=== PATIENT | male | born 1965 | race Caucasian/White ===

== ENCOUNTER 2016-09-12 23:56 | Emergency (ER) | payer SELFPAY | END 2016-09-13 01:32 | disposition left against medical advice (07) | LOC: ER 23:56 | DX: Z53.21 Procedure and treatment not carried out due to patient leaving prior to being seen by health care provider (principal) ==

== ENCOUNTER 2016-09-13 06:56 | Emergency (ER) | payer MEDICAID ==
[2016-09-13 07:16] VITALS: BP 123/97
[2016-09-13] MEDS ORDERED: HYDROCODONE/ACETAMINOPHEN 5-325 MG TABLET PO ONE (07:27)
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
[2016-09-13] MEDS ORDERED: OXYCODONE-ACETAMINOPHEN 5-325 MG TABLET PO ONE (09:06)
== END 2016-09-13 09:11 | disposition home or self-care (01) ==
LOC: ER 06:56
DX: S69.91XA Unspecified injury of right wrist, hand and finger(s), initial encounter (principal); M79.89 Other specified soft tissue disorders; W19.XXXA Unspecified fall, initial encounter; F17.200 Nicotine dependence, unspecified, uncomplicated; Z88.5 Allergy status to narcotic agent
CPT/HCPCS: 99283

== ENCOUNTER 2017-10-11 16:26 | Emergency (ER) | payer MEDICAID ==
[2017-10-11] MEDS ORDERED: HYDROMORPHONE HCL INJ/PF 2 MG/ML AMPULE IV ONE ×2 (17:25→21:13)
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
[2017-10-11] MEDS ORDERED: DIAZEPAM 2 MG TABLET PO ONE (18:36)
--- NOTE | 2017-10-11 20:03 | RADIOLOGY REPORT (SQ) ---
EXAM DESCRIPTION: MRI CERVICAL SPINE WITHOUT COMPLETED DATE/TIME: 10/11/2017 7:29 pm REASON FOR STUDY: pain/fall COMPARISON: None. TECHNIQUE: Sagittal and Axial imaging includes T1, T2, STIR and gradient echo sequences. LIMITATIONS: None. FINDINGS: ALIGNMENT: Normal. VERTEBRAE: Intact. Congenital fusion of C6-C7. BONE MARROW: Mild multilevel degenerative changes. DISCS: Multilevel degenerative changes. HARDWARE: None in the spine. CORD AND BASE OF BRAIN: Normal in size and signal intensity. SOFT TISSUES: No soft tissue masses. C1-C2: No significant spinal stenosis. C2-C3: No significant spinal stenosis or exit foraminal stenosis. C3-C4: High-grade right-sided exit foraminal stenosis due to 7 mm disc protrusion. Mild left exit for aminal stenosis. C4-C5: Mild -moderate central canal narrowing due to posterior spondylotic ridging. Mild -moderate b ilateral exit foraminal stenosis. C5-C6: Mild -moderate central canal narrowing due to posterior spondylotic ridging. Mild -moderate bilateral exit foraminal stenosis.. C6-C7: Congenital fusion. No significant spinal stenosis or exit foraminal stenosis. C7-T1: No significant spinal stenosis or exit foraminal stenosis. UPPER THORACIC: Incompletely imaged. No significant spinal stenosis or exit foraminal stenosis. OTHER: No other significant finding. 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 No ev idence for fracture. Mild -moderate central canal narrowing due to posterior spondylotic ridging at the C4-5 and C5-6 levels with Mild -moderate bilateral exit foraminal stenosis. TECHNICAL DOCUMENTATION: JOB ID: [id number] [place]-72 2010 [employer]- All Rights Reserved
[2017-10-11] MEDS ORDERED: DEXAMETHASONE SOD PHOS INJ 10 MG/1 ML VIAL IV ONE (21:55)
[2017-10-11] MEDS ORDERED: KETOROLAC TROMETHAMINE INJ/PF 30 MG/1 ML SDV IV ONE (21:55)
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
[2017-10-11 22:32] VITALS: BP 152/91
== END 2017-10-11 22:32 | disposition home or self-care (01) ==
LOC: ER 16:26
DX: S13.141A Dislocation of C3/C4 cervical vertebrae, initial encounter (principal); Y04.0XXA Assault by unarmed brawl or fight, initial encounter; M54.2 Cervicalgia; R20.0 Anesthesia of skin; R20.2 Paresthesia of skin; M79.601 Pain in right arm; M79.602 Pain in left arm; M25.512 Pain in left shoulder; F17.210 Nicotine dependence, cigarettes, uncomplicated; Z98.1 Arthrodesis status; Z71.6 Tobacco abuse counseling; Z88.5 Allergy status to narcotic agent
CPT/HCPCS: 96376; 99406; 99284; 96374; 96375; 72141; L0120; J3490; J1885; J1170; J1100

== ENCOUNTER 2017-10-13 16:12 | Emergency (ER) | payer MEDICAID ==
--- NOTE | 2017-10-13 17:17 | ER Document Report ---
ED General - General Chief Complaint: Neck Pain >24hrs old Stated Complaint: NECK INJURY Time Seen by Provider: 10/13/17 17:01 Mode of Arrival: Ambulatory Information source: Patient Notes: 52-year-old male with chronic neck pain who had an injury 2 days ago an MRI performed which noted a 7 mm protrusion presents with complaints of wanting pain medication. Patient notes he has run out of the pain meds are prescribed to him, that he has follow-up with neurosurgery but not until 1 month from now, patient notes he was given 6 pain meds and wants more Patient denies any neurological weakness numbness that is acute, he does have chronic right-sided deficits TRAVEL OUTSIDE OF THE [place] IN LAST 30 DAYS: No - HPI Onset: Other Onset/Duration: Persistent Quality of pain: Achy Severity: Mild Pain Level: 1 Associated symptoms: Body/muscle aches Exacerbated by: Movement Relieved by: Denies Similar symptoms previously: Yes Recently seen / treated by doctor: Yes - Related Data Allergies/Adverse Reactions: hydrocodone Allergy (Verified 10/13/17 16:16) Past Medical History - Social History Smoking Status: Current Every Day Smoker Cigarette use (# per day): Yes Chew tobacco use (# tins/day): No Smoking Education Provided: No Frequency of alcohol use: Occasional Drug Abuse: None Family History: CAD, DM, Hyperlipidemia, Hypertension Patient has suicidal ideation: No Patient has homicidal ideation: No Renal/ Medical History: Denies: Hx Peritoneal Dialysis Musculoskeltal Medical History: Reports Hx Arthritis, Reports Hx Musculoskeletal Deformity, Reports Hx Musculoskeletal Trauma Past Surgical History: Reports: Hx Orthopedic Surgery - cervical spine x6 - Immunizations Immunizations up to date: No Hx Diphtheria, Pertussis, Tetanus Vaccination: No Review of Systems - Review of Systems Notes: REVIEW OF SYSTEMS: CONSTITUTIONAL : Denies fever, chills, or sweats. Denies recent illness. EENT: Admits to neck pain CARDIOVASCULAR: Denies chest pain. Denies palpitations or racing or irregular heart beat. Denies ankle edema. RESPIRATORY: Denies cough, cold, or chest congestion. Denies shortness of breath, difficulty breathing, or wheezing. GASTROINTESTINAL: Denies abdominal pain or distention. Denies nausea, vomiting , or diarrhea. Denies blood in vomitus, stools, or per rectum. Denies black, tarry stools. Denies constipation. GENITOURINARY: Denies difficulty urinating, painful urination, burning, frequency, blood in urine, or discharge. MUSCULOSKELETAL: Denies any back pain SKIN: Denies rash, lesions or sores. HEMATOLOGIC : Denies easy bruising or bleeding. LYMPHATIC: Denies swollen, enlarged glands. NEUROLOGICAL: Admits to baseline right-sided weakness PSYCHIATRIC: Denies anxiety or stress. Denies depression, suicidal ideation, or homicidal ideation. ALL OTHER SYSTEMS REVIEWED AND NEGATIVE. Dictation was performed using [employer] voice recognition software PHYSICAL EXAMINATION: GENERAL: Well-appearing, well-nourished and in no acute distress. HEAD: Atraumatic, normocephalic. EYES: Pupils equal round and reactive to light, extraocular movements intact, sclera anicteric, conjunctiva are normal. ENT: Nares patent, oropharynx clear without exudates. Moist mucous membranes. NECK: C-collar in place LUNGS: Breath sounds clear to auscultation bilaterally and equal. No wheezes rales or rhonchi. HEART: Regular rate and rhythm without murmurs ABDOMEN: Soft, nontender, nondistended abdomen. No guarding, no rebound. No masses appreciated. Musculoskeletal: Normal range of motion, no pitting or edema. No cyanosis. NEUROLOGICAL: Cranial nerves grossly intact. Normal speech, normal gait. Normal sensory, motor exams a sign 4 out of 5 strength upper extremities PSYCH: Normal mood, normal affect. SKIN: Postsurgical changes right upper extremity Physical Exam - Vital signs Vitals: Temp Pulse Resp BP Pulse Ox 98.4 F 68 12 150/101 H 98 10/13/17 16:19 10/13/17 16:19 10/13/17 16:19 10/13/17 16:19 10/13/17 16:19 Course - Re-evaluation Re-evalutation: 10/13/17 19:35 MRI report and previous presentations have been reviewed, patient will be given pain control at his request, I have stressed the importance of follow-up with primary care as well as neurosurgery but given his actual injury I do believe further pain control at this time is appropriate patient is happy with this plan does not want any imaging does not want anything done except for the pain control After performing a Medical Screening Examination, I estimate there is LOW risk for CENTRAL CORD SYNDROME, LUDWIGS ANGINA, PERITONSILLAR ABSCESS, RETROPHARYNGEAL ABSCESS, EPIDURAL MASS LESION, SEVERE SPINAL STENOSIS, ARTERIAL DISSECTION, MENINGITIS, or ACUTE CORONARY SYNDROME, thus I consider the discharge disposition reasonable. I have reevaluated this patient multiple times and no significant life threatening changes are noted. The patient and I have discussed the diagnosis and risks, and we agree with discharging home to follow-up on an outpatient basis with the understanding that symptoms and presentations can change. We also discussed returning to the Emergency Department immediately if new or worsening symptoms occur. We have discussed the symptoms which are most concerning (e.g., saddle anesthesia, urinary or bowel incontinence or retention, changing or worsening pain) that necessitate immediate return. - Vital Signs Vital signs: Temp Pulse Resp BP Pulse Ox 97.8 F 76 12 135/98 H 98 10/13/17 17:50 10/13/17 17:50 10/13/17 16:19 10/13/17 17:50 10/13/17 17:50 - Diagnostic Test Radiology reviewed: Image reviewed Discharge - Discharge Clinical Impression: Protrusion of cervical intervertebral disc, Medication refill Fall Qualifiers: Encounter type: initial encounter Qualified Code(s): W19.XXXA - Unspecified fall, initial encounter Condition: Stable Disposition: HOME, SELF-CARE Instructions: Neck Injury (Cervical Strain) ([facility]) Additional Instructions: You must follow-up with your surgeon and primary care for further pain control, otherwise years stable for discharge at this time no neurological deficits are noted Prescriptions: Methocarbamol [Robaxin 500 mg Tablet] 500 mg PO BID #20 tablet Oxycodone HCl/Acetaminophen [Percocet 5-325 mg Tablet] 1 - 2 tab PO Q4H PRN #20 tablet PRN Reason:
[2017-10-13] MEDS ORDERED: OXYCODONE-ACETAMINOPHEN 5-325 MG TABLET PO ONE (17:48)
[2017-10-13 17:59] VITALS: BP 135/98
== END 2017-10-13 17:59 | disposition home or self-care (01) ==
LOC: ER 16:12
DX: Z76.0 Encounter for issue of repeat prescription (principal); M50.23 Other cervical disc displacement, cervicothoracic region; W19.XXXA Unspecified fall, initial encounter
CPT/HCPCS: 99283

== ENCOUNTER 2017-10-18 11:12 | Emergency (ER) | payer MEDICAID, OTHER ==
[2017-10-18 11:19] VITALS: BP 130/87
--- NOTE | 2017-10-18 11:51 | ER Document Report ---
ED Neck/Back Problem - General Chief Complaint: Neck Pain >24hrs old Stated Complaint: NECK PAIN Time Seen by Provider: 10/18/17 11:46 Mode of Arrival: Ambulatory Information source: Patient Notes: 52 years old male who was seen here in the hospital a few times 1 time last time he was seen here for pain medication prior to that was seen here for neck pain and had a CT of the neck which was reported by radiologist as no fracture. Today he presents saying that his pain medication as an out and he needs pain medications. Claimed that he has an appointment with pain clinic 8 days from today. Otherwise no symptom change. Persistent neck pain. TRAVEL OUTSIDE OF THE [place] IN LAST 30 DAYS: No - Related Data Allergies/Adverse Reactions: hydrocodone Allergy (Verified 10/13/17 16:16) Past Medical History - General Information source: Patient - Social History Smoking Status: Current Every Day Smoker Chew tobacco use (# tins/day): No Frequency of alcohol use: None Drug Abuse: None Family History: CAD, DM, Hyperlipidemia, Hypertension Patient has suicidal ideation: No Patient has homicidal ideation: No - Medical History Notes: Chronic pain syndrome - Past Medical History Cardiac Medical History: Denies: None, Hx Atrial Fibrillation, Hx Congestive Heart Failure, Hx Coronary Artery Disease, Hx DVT, Hx Heart Attack, Hx Hypercholesterolemia, Hx Hypertension, Hx Peripheral Vascular Disease, Hx Pulmonary Embolism, Hx Heart Murmur, Other Renal/ Medical History: Denies: Hx Peritoneal Dialysis Musculoskeltal Medical History: Reports Hx Arthritis, Reports Hx Musculoskeletal Deformity, Reports Hx Musculoskeletal Trauma Past Surgical History: Reports: Hx Orthopedic Surgery - cervical spine x6 - Immunizations Immunizations up to date: No Hx Diphtheria, Pertussis, Tetanus Vaccination: No Review of Systems - Review of Systems Constitutional: denies: No symptoms reported, See HPI, Chills, Diaphoresis, Fever, Malaise, Weakness, Other, Weight gain, Weight loss, Recent illness EENT: denies: No symptoms reported, See HPI, Eye pain, Eye discharge, Blurred vision, Tearing, Double vision, Ear pain, Ear discharge, Nose pain, Nose congestion, Nose discharge, Sinus pressure, Sinus discharge, Throat pain, Difficulty swallowing, Throat swelling, Mouth pain, Mouth swelling, Dental problem, Vertigo, Other Cardiovascular: denies: No symptoms reported, See HPI, Chest pain, Palpitations , Heart racing, Orthopnea, Dyspnea, Syncope, Dizziness, Lightheaded, Edema, Other, Paroxysmal Nocturnal Dysp Respiratory: denies: No symptoms reported, See HPI, Cough, Hurts to breathe, Hemoptysis, Short of breath, Sputum, Stridor, Wheezing, Other Gastrointestinal: denies: No symptoms reported, See HPI, Abdomen distended, Abdominal pain, Diarrhea, Nausea, Vomiting, Constipation, Blood streaked bowels , Poor appetite, Poor fluid intake, Blood in vomit, Black stools, Rectal bleeding, Last bowel movement, Fecal incontinence, Other Genitourinary: denies: No symptoms reported, See HPI, Burning, Dysuria, Discharge, Frequency, Flank pain, Hematuria, Incontinence, Pain, Urgency, Retention, Other Neurological/Psychological: denies: No symptoms reported, See HPI, Confusion, Dementia, Depression, Hallucinations, Anxiety, Homicidal ideation, Sensory change, Weakness, Gait changes, Loss of power, Paralysis, Seizure, Lost consciousness, Headaches, Speech impairment, Numbness, Suicidal ideation, Tingling, Tremor, Other Physical Exam - Vital signs Vitals: Temp Pulse Resp BP Pulse Ox 97.5 F 70 16 130/87 H 98 10/18/17 11:17 10/18/17 11:17 10/18/17 11:17 10/18/17 11:17 10/18/17 11:17 - Notes Notes: PHYSICAL EXAMINATION: GENERAL: Well-appearing, well-nourished and in no acute distress. Not seems to be in any acute distress. HEAD: Atraumatic, normocephalic. EYES: Pupils equal round and reactive to light, extraocular movements intact, sclera anicteric, conjunctiva are normal. ENT: Nares patent, oropharynx clear without exudates. Moist mucous membranes. NECK: On neck collar, questionable tenderness over the paraspinal muscles, supple without lymphadenopathy LUNGS: Breath sounds clear to auscultation bilaterally and equal. No wheezes rales or rhonchi. HEART: Regular rate and rhythm without murmurs ABDOMEN: Soft, nontender, nondistended abdomen. No guarding, no rebound. No masses appreciated. Musculoskeletal: Normal range of motion, no pitting or edema. No cyanosis. NEUROLOGICAL: Cranial nerves grossly intact. Normal speech, normal gait. Normal sensory, motor exams PSYCH: Normal mood, normal affect. SKIN: Warm, Dry, normal turgor, no rashes or lesions noted. Course - Re-evaluation Re-evalutation: 10/18/17 11:49 His past record was reviewed his medication prescription pattern was reviewed, he was given 20 of Percocet 20th this month. - Vital Signs Vital signs: Temp Pulse Resp BP Pulse Ox 97.5 F 70 16 130/87 H 98 10/18/17 11:17 10/18/17 11:17 10/18/17 11:17 10/18/17 11:17 10/18/17 11:17 Discharge - Discharge Clinical Impression: Chronic neck pain Condition: Fair Disposition: HOME, SELF-CARE Instructions: Sprain ([facility]) Prescriptions: Tramadol HCl [Ultram 50 mg Tablet] 50 mg PO ASDIR PRN #20 tablet PRN Reason:
== END 2017-10-18 11:59 | disposition home or self-care (01) ==
LOC: ER 11:12
DX: M54.2 Cervicalgia (principal); G89.29 Other chronic pain; F17.200 Nicotine dependence, unspecified, uncomplicated
CPT/HCPCS: 99283

== ENCOUNTER → 2018-03-05 | Outpatient (CLI) | payer MEDICAID ==
--- NOTE | 2018-03-05 16:26 | RADIOLOGY REPORT (SQ) ---
EXAM DESCRIPTION: CT CERVICAL SPINE WITHOUT COMPLETED DATE/TIME: 03/05/2018 1:40 pm REASON FOR STUDY: RADICULOPATHY, CERVICAL REGION M54.12 M54.12 RADICULOPATHY, CERVICAL REGION COMPARISON: MRI cervical spine 10/11/2017 TECHNIQUE: Axial images acquired through the cervical spine without intravenous contrast. Images re viewed with lung, soft tissue and bone windows. Reconstructed coronal and sagittal MPR images review ed. Images stored on PACS. All CT scanners at this facility use dose modulation, iterative reconstruction, and/or weight based d osing when appropriate to reduce radiation dose to as low as reasonably achievable (ALARA). [facility]: Dose Right [facility]: CareDose [facility]: Dose Right [facility]: Teradose 4D [facility]: [employer] RADIATION DOSE: CT Rad equipment meets quality standard of care and radiation dose reduction techniq ues were employed. CTDIvol: 17.0 mGy. DLP: 405 mGy-cm. mGy. LIMITATIONS: None. FINDINGS: ALIGNMENT: Anatomic. MINERALIZATION: Normal. 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 DISCS: Craniocervical junction, C1-2, are unremarkable. At C2-3, minimal posterior disc bulging is present without central stenosis. No right foraminal narr owing. Mild left foraminal narrowing from facet and uncovertebral hypertrophy. At C3-4, there is high-grade disc space loss of height with bulky rightward paracentral posterior bon y spurring best shown on sagittal images 15 and coronal image 12-13. Patient is post bilateral moisés ectomy at this level. Very bulky right-sided facet arthropathy is present. There is high-grade righ t foraminal narrowing best shown on axial images 34-36. Mild left foraminal narrowing. No definite central stenosis. At C4-5, broad diffuse posterior disc bulge and bony spurring is present. Post bilateral laminectomy . There is narrowing of the AP diameter of the spinal canal and partial effacement of the CSF around the cord at the C4-5 level without cord flattening. Moderate bilateral foraminal narrowing is prese nt. At C5-6, broad diffuse posterior disc bulge is present, causing mild central canal narrowing and effa cement of the CSF around the cervical cord. Moderate to high-grade bilateral foraminal stenosis is p resent from facet and uncovertebral hypertrophy. Hypoplastic C6-7 disc space with fused posterior elements. C7-T1 has bilateral facet arthropathy left greater than right with mild bilateral foraminal narrowing left greater than right. No central stenosis. FACETS, LATERAL MASSES, POSTERIOR ELEMENTS: Multilevel facet arthropathy. Post bilateral laminectomy at C3 and C4 HARDWARE: None in the spine. VISUALIZED RIBS: No fractures. LUNG APICES AND SOFT TISSUES: No significant or acute findings. OTHER: No other significant finding. IMPRESSION: Post bilateral laminectomy at C3 and C4 Bulky right paracentral bony spurring at C3-4 with facet arthropathy causes high-grade right foramina l narrowing. TECHNICAL DOCUMENTATION: JOB ID: [id number] Quality ID # [id number]: Final reports with documentation of one or more dose reduction techniques (e.g., Au tomated exposure control, adjustment of the mA and/or kV according to patient size, use of iterative reconstruction technique) 2010 [employer]- All Rights Reserved Reading location - IP/workstation name: [email or web address]
== END ==
LOC: RAD 17:03
PROVIDERS: ATTEND Specialist
DX: M54.12 Radiculopathy, cervical region (principal); M96.1 Postlaminectomy syndrome, not elsewhere classified
CPT/HCPCS: 72125

== ENCOUNTER 2019-06-06 15:27 | Emergency (ER) | payer MEDICAID ==
[2019-06-06] MEDS ORDERED: OXYCODONE-ACETAMINOPHEN 5-325 MG TABLET PO ONE (16:49)
--- NOTE | 2019-06-06 17:58 | RADIOLOGY REPORT (SQ) ---
EXAM DESCRIPTION: CT CERVICAL SPINE WITHOUT COMPLETED DATE/TIME: 06/06/2019 5:21 pm REASON FOR STUDY: tree branch hit pt, hx of neck fx COMPARISON: None. TECHNIQUE: Axial images acquired through the cervical spine without intravenous contrast. Images re viewed with lung, soft tissue and bone windows. Reconstructed coronal and sagittal MPR images review ed. Images stored on PACS. All CT scanners at this facility use dose modulation, iterative reconstruction, and/or weight based d osing when appropriate to reduce radiation dose to as low as reasonably achievable (ALARA). [facility]: Dose Right [facility]: CareDose [facility]: Dose Right [facility]: Teradose 4D [facility]: Smart [employer] RADIATION DOSE: CT Rad equipment meets quality standard of care and radiation dose reduction techniq ues were employed. CTDIvol: 14.8 mGy. DLP: 328 mGy-cm. mGy. LIMITATIONS: None. FINDINGS: ALIGNMENT: Anatomic. MINERALIZATION: Normal. VERTEBRAL BODIES: No fractures or dislocation. C6-7 vertebral fusion. DISCS: Severe multilevel degenerative disc disease. FACETS, LATERAL MASSES, POSTERIOR ELEMENTS: C3 and C4 laminectomies. No fractures. No dislocation. No acute findings. Facet arthrosis. HARDWARE: None in the spine. VISUALIZED RIBS: No fractures. LUNG APICES AND SOFT TISSUES: Mild paraseptal emphysema versus apical bullae. OTHER: No other significant finding. IMPRESSION: No acute bone abnormality of the cervical spine. TECHNICAL DOCUMENTATION: JOB ID: [id number] Quality ID # [id number]: Final reports with documentation of one or more dose reduction techniques (e.g., Au tomated exposure control, adjustment of the mA and/or kV according to patient size, use of iterative reconstruction technique) 2010 [employer]- All Rights Reserved Reading location - IP/workstation name: [email or web address]
--- NOTE | 2019-06-06 18:12 | ER Document Report ---
HPI - HPI Time Seen by Provider: 06/06/19 16:19 Pain Level: 5 Notes: Patient is an otherwise healthy 54-year-old male presenting to the emergency department with complaints of posterior neck pain. Patient reports history of multiple surgeries to his neck. He states he was doing some yard work when a tree branch fell striking him on the top of his head. He reports he feels like he may have a cervical fracture as he has had cervical fractures in the past. He denies any numbness or tingling. - CONSTITUTIONAL Constitutional: DENIES: Fever, Chills - EENT EENT: DENIES: Sore Throat, Ear Pain, Eye problems - NEURO Neurology: DENIES: Headache, Weakness, Vision blurred, Dizzinesss / Vertigo - CARDIOVASCULAR Cardiovascular: DENIES: Chest pain - RESPIRATORY Respiratory: DENIES: Trouble Breathing, Coughing - GASTROINTESTINAL Gastrointestinal: DENIES: Abdominal Pain, Black / Bloody Stools - URINARY Urinary: DENIES: Dysuria, Urgency, Frequency - REPRODUCTIVE Reproductive: DENIES: : - MUSCULOSKELETAL Musculoskeletal: DENIES: Extremity pain Past Medical History - General Information source: Patient - Social History Smoking Status: Current Every Day Smoker Chew tobacco use (# tins/day): No Frequency of alcohol use: None Drug Abuse: None Family History: CAD, DM, Hyperlipidemia, Hypertension Patient has suicidal ideation: No Patient has homicidal ideation: No - Past Medical History Cardiac Medical History: Denies: Hx Atrial Fibrillation, Hx Congestive Heart Failure, Hx Coronary Artery Disease, Hx DVT, Hx Heart Attack, Hx Hypercholesterolemia, Hx Hypertension, Hx Peripheral Vascular Disease, Hx Pulmonary Embolism, Hx Heart Murmur Renal/ Medical History: Denies: Hx Peritoneal Dialysis Musculoskeletal Medical History: Reports Hx Arthritis, Reports Hx Musculoskeletal Deformity, Reports Hx Musculoskeletal Trauma Past Surgical History: Reports: Hx Orthopedic Surgery - cervical spine x6 - Immunizations Immunizations up to date: No Hx Diphtheria, Pertussis, Tetanus Vaccination: No Vertical Provider Document - CONSTITUTIONAL Notes: PHYSICAL EXAMINATION: GENERAL: Well-appearing, well-nourished and in no acute distress. HEAD: Atraumatic, normocephalic. EYES: Pupils equal round extraocular movements intact, conjunctiva are normal. ENT: Nares patent NECK: Tenderness to palpation in C2 and C3, no crepitus or deformity on palpation. LUNGS: No respiratory distress Musculoskeletal: Normal range of motion NEUROLOGICAL: Normal speech, normal gait. Planer Tailer strength is equal bilaterally. PSYCH: Normal mood, normal affect. SKIN: Warm, Dry, normal turgor, no rashes or lesions noted. - INFECTION CONTROL TRAVEL OUTSIDE OF THE [place] IN LAST 30 DAYS: No Course - Re-evaluation Re-evalutation: Cervical Spine CT 06/06/19 16:47 IMPRESSION: No acute bone abnormality of the cervical spine. CT is negative for any acute findings. Patient will be placed in a soft collar for his comfort. He will be prescribed a short course of pain medication and muscle relaxers. He will follow-up with his primary care provider. The patient's emergency department workup and current diagnosis were explained to the patient and or family. Follow-up instructions were provided. Medications if prescribed were discussed. Instructions for when to return to the emergency department including specific worrisome symptoms were discussed with the patient and/or family. - Vital Signs Vital signs: Temp Pulse Resp BP Pulse Ox 98.2 F 77 14 160/98 H 96 06/06/19 15:39 06/06/19 15:39 06/06/19 15:39 06/06/19 15:39 06/06/19 15:39 Discharge - Discharge Clinical Impression: Cervical strain Qualifiers: Encounter type: initial encounter Qualified Code(s): S16.1XXA - Strain of muscle, fascia and tendon at neck level, initial encounter Condition: Stable Disposition: HOME, SELF-CARE Additional Instructions: The CT scan of your neck did not show any new abnormality. You are likely suffering from a musculoskeletal or cervical strain from the object falling on your head. Please take medications exactly as prescribed. You may also take ibuprofen 600 mg every 6 hours. Apply moist heat to the area. Follow-up with your primary care doctor, let them know you are seen here in the emergency department. He complains of your CT report here. Prescriptions: Cyclobenzaprine HCl [Flexeril 10 mg Tablet] 10 mg PO TIDP PRN #15 tab PRN Reason: Oxycodone HCl/Acetaminophen [Percocet 5-325 mg Tablet] 1 tab PO Q6H PRN #12 tablet PRN Reason: Forms: Return to Work Referrals: SANG PATTEN MD [Primary Care Provider] - Follow up as needed
[2019-06-06 18:25] VITALS: BP 150/92
== END 2019-06-06 18:25 | disposition home or self-care (01) ==
LOC: ER 15:27
DX: S16.1XXA Strain of muscle, fascia and tendon at neck level, initial encounter (principal); F17.200 Nicotine dependence, unspecified, uncomplicated; X58.XXXA Exposure to other specified factors, initial encounter
CPT/HCPCS: 99283; 72125; L0120 ×2